=== PATIENT | female | born 1975 | race Caucasian/White ===

== ENCOUNTER 2019-11-08 01:27 | Day surgery (SDC) | payer BC, SELFPAY ==
[2019-11-02 14:42] VITALS: BMI 37.5
--- NOTE | 2019-11-08 08:24 | PM.HPGS ---
History of Present Illness History of Present Illness Consent: Risks, benefits, and alternatives have been discussed and questions answered. Patient agrees to proceed with procedure. Chief complaint: Epigastric Pain Narrative: Leidy Retana is a 44 year old female with frequent heartburn PMFSH Social History Social History Gender identity (if verbalized by the patient): Female Meds Home Medications and Allergies Home Medications Medication Instructions Recorded Confirmed Type No Home Medications 11/02/19 11/02/19 History Allergies Allergy/AdvReac Type Severity Reaction Status Date / Time HYDROMORPHONE HCL Allergy Severe RASH Uncoded 11/02/13 08:47 Exam Const: General: alert Orientation/consciousness: patient oriented x3 Resp: Auscultation: clear to auscultation bilaterally Cardio: Rhythm: regular rhythm GI: GI Palp: Yes Soft to palpation and No Tenderness to palpation present (GI) Neuro: General: patient oriented x3 Assessment and Plan Assessment and plan (1) GERD (gastroesophageal reflux disease): Code(s): K21.9 - Gastro-esophageal reflux disease without esophagitis Status: Acute Assessment and Plan: EGD with possible biopsy or dilatation or cautery.
[2019-11-08] MEDS: LACTATED RINGERS 1,000 ML 150 ML IV CONT (08:41)
[2019-11-08 08:43] VITALS: BMI 38.4
[2019-11-08 08:46] VITALS: BP 140/85; PULSE 88; RESP 16; TEMP 37.2; O2SAT 100
--- NOTE | 2019-11-08 08:52 | WPDANESEPPF ---
Anes - Initial Pre Proc Eval Procedure: Operation Date: 11/08/19 09:00 Proposed Procedures p Esophagogastroduodenoscopy - Teofilo Cervantes MD Date/Time: 11/08/19 08:52 Surgeon: Teofilo Cervantes MD Pre Op Diagnosis: Epigastric Pain Patient Data Age: 44 Gender: F Height: 5 ft 1 in Weight: 92.3 kg Last Vital Signs Temp 98.9 F 11/08/19 08:46 Pulse 88 11/08/19 08:46 Resp 16 11/08/19 08:46 BP 140/85 11/08/19 08:46 Pulse Ox 100 11/08/19 08:46 Allergies Allergy/AdvReac Type Severity Reaction Status Date / Time codeine Allergy Verified 11/08/19 08:28 HYDROMORPHONE HCL Allergy Severe RASH Uncoded 11/08/19 08:28 Home Medications Medication Instructions Recorded Confirmed Type naproxen sodium [Aleve] 220 mg PO BID PRN 11/08/19 11/08/19 History Patient hx anesthesia problems: none Family hx anesthesia problems: none [facility] Past Medical History Medical History (Updated 11/08/19 @ 08:53 by Terrance Brown MD) GERD (gastroesophageal reflux disease) Social History Social History Gender identity (if verbalized by the patient): Female Anes - Eval Final PreProcedure Day of Procedure 11/08/19 08:52 Patient weight: obese Heart: regular rate and rhythm Lungs: clear to auscultation Airway: Mallampati scale class II Neurological: alert and oriented Last oral intake: >/= 8 hours ASA classification: II Emergent: no Anesthetic plan: proceed Anesthesia type and monitoring: general GIVS and standard monitoring Informed Consent: The patient's anesthetic plan and its attendant risks and benefits were discussed with the patient/family/POA. Questions were solicited and answers provided to the satisfaction of the patient/family/POA.
[2019-11-08 09:25] VITALS: BP 126/80; PULSE 78; RESP 25; O2SAT 100
[2019-11-08 09:32] VITALS: BP 113/50; PULSE 83; RESP 18; O2SAT 99
[2019-11-08 09:42] VITALS: BP 126/80; PULSE 79; RESP 28; O2SAT 100
== END 2019-11-08 09:40 | disposition home or self-care (01) ==
PROVIDERS: PCP Internal Medicine; Visit Provider Internal Medicine Gastroenterology
PROC: 0DJ08ZZ Inspection of Upper Intestinal Tract, Via Natural or Artificial Opening Endoscopic (ICD-10-PCS; CPT 43235; principal; 2019-11-08 09:00)
DX: K21.9 Gastro-esophageal reflux disease without esophagitis (principal); E66.9 Obesity, unspecified; Z68.38 Body mass index [BMI] 38.0-38.9, adult
CPT/HCPCS: 43239; 87081; J2704; J7120

== ENCOUNTER → 2020-05-23 14:56 | Outpatient (CLI) | payer BC, SELFPAY ==
--- NOTE | ~2020-05-23 | MM_ITS ---
EXAMINATION: MM screening [facility] BI w [facility] HISTORY: Screening mammogram TECHNIQUE: Craniocaudal and mediolateral oblique 3-D tomosynthesis images were obtained and synthetic 2-D images were generated. CAD analysis was submitted and interpreted. COMPARISON: 01/25/2018, 01/10/2018, 06/21/2015 BREAST PARENCHYMAL COMPOSITION: There are scattered areas of fibroglandular density. FINDINGS: There is no evidence of suspicious mass, calcification, or architectural distortion to sugg est malignancy in either breast. There has been no suspicious interval change. IMPRESSION: 1. No mammographic evidence of malignancy. 2. Recommend routine screening mammography in one year. BI-RADS Category 1: Negative Reviewed, dictated and finalized at location A.
== END ==
PROVIDERS: PCP Internal Medicine; Visit Provider Obstetrics & Gynecology
DX: Z12.31 Encounter for screening mammogram for malignant neoplasm of breast (principal)
CPT/HCPCS: 77063; 77067

== ENCOUNTER 2023-01-29 01:31 | Day surgery (SDC) | payer BC, SELFPAY ==
[2023-01-22 10:13] VITALS: BMI 40.3
--- NOTE | 2023-01-28 15:42 | PM.HPGS ---
History of Present Illness History of Present Illness Consent: Risks, benefits, and alternatives have been discussed and questions answered. Patient agrees to proceed with procedure. Chief complaint: neoplasm screening Narrative: Leidy Retana is a 47 year old female Referred for colon cancer screening. She has 2 relatives who had colon cancer. Her last colonoscopy was 11 years ago. Review of Systems Review of Systems: All systems reviewed & are unremarkable except as noted in HPI and below PMFSH Past Medical History Medical History GERD (gastroesophageal reflux disease) Social History Social History Smoking status: Never smoker Substance use type: does not use Living arrangements: with family Gender identity (if verbalized by the patient): Female Spiritual care concerns: No Meds Home Medications and Allergies Home Medications Medication Instructions Recorded Confirmed Type atorvastatin 10 mg tablet 10 mg PO DAILY 11/11/22 01/22/23 History meloxicam 15 mg tablet 15 mg PO DAILY 11/11/22 01/22/23 History pantoprazole 40 mg tablet,delayed 40 mg PO QAM 3 months #90 tabs 11/11/22 01/22/23 Rx release collagen 1 dose PO DAILY 01/22/23 01/22/23 History Allergies Allergy/AdvReac Type Severity Reaction Status Date / Time hydrocodone Allergy Intermediate Agitated Verified 01/29/23 06:48 hydromorphone [From Dilaudid] Allergy Intermediate Itching Verified 01/29/23 06:48 codeine AdvReac Intermediate Nausea Verified 01/29/23 06:48 Exam Const: General: alert Orientation/consciousness: patient oriented x3 Resp: Auscultation: clear to auscultation bilaterally Cardio: Rhythm: regular rhythm GI: GI Palp: Yes Soft to palpation and No Tenderness to palpation present (GI) Neuro: General: patient oriented x3 Assessment and Plan Assessment and plan (1) Colon cancer screening: Code(s): Z12.11 - Encounter for screening for malignant neoplasm of colon Status: Acute Assessment and Plan: Colonoscopy with possible biopsy or polypectomy or cautery or injection of substances.
[2023-01-29 06:52] VITALS: BP 144/81; PULSE 105; RESP 20; TEMP 36.2; O2SAT 99
[2023-01-29] MEDS: LACTATED RINGERS 1,000 ML 150 ML IV CONT (07:08)
--- NOTE | 2023-01-29 07:38 | WPDANESEPPF ---
Anes - Initial Pre Proc Eval Procedure: Operation Date: 01/29/23 08:00 Proposed Procedures p Screening Colonoscopy - Teofilo Cervantes MD Date/Time: 01/29/23 07:38 Surgeon: Teofilo Cervantes MD Pre Op Diagnosis: neoplasm screening Patient Data Age: 47 Gender: F Height: 1.57 m Weight: 97.1 kg Last Vital Signs Temp 36.2 C L 01/29/23 06:52 Pulse 105 H 01/29/23 06:52 Resp 20 01/29/23 06:52 BP 144/81 H 01/29/23 06:52 Pulse Ox 99 01/29/23 06:52 O2 Del Method Room Air 01/29/23 06:52 Allergies Allergy/AdvReac Type Severity Reaction Status Date / Time hydrocodone Allergy Intermediate Agitated Verified 01/29/23 06:48 hydromorphone [From Dilaudid] Allergy Intermediate Itching Verified 01/29/23 06:48 codeine AdvReac Intermediate Nausea Verified 01/29/23 06:48 Home Medications Medication Instructions Recorded Confirmed Type atorvastatin 10 mg tablet 10 mg PO DAILY 11/11/22 01/22/23 History meloxicam 15 mg tablet 15 mg PO DAILY 11/11/22 01/22/23 History pantoprazole 40 mg tablet,delayed 40 mg PO QAM 3 months #90 tabs 11/11/22 01/22/23 Rx release collagen 1 dose PO DAILY 01/22/23 01/22/23 History Patient hx anesthesia problems: none Family hx anesthesia problems: none Results Review: All pre-operative results and documents have been reviewed as part of the pre-operative evaluation. [facility] Past Medical History Medical History (Updated 01/29/23 @ 07:40 by Andrea Liao MD) GERD (gastroesophageal reflux disease) Obesity Osteoarthritis PUD (peptic ulcer disease) Social History Social History Smoking status: Never smoker Substance use type: does not use Living arrangements: with family Gender identity (if verbalized by the patient): Female Spiritual care concerns: No Anes - Eval Final PreProcedure Day of Procedure 01/29/23 07:38 Patient weight: obese Heart: regular rate and rhythm Lungs: clear to auscultation Airway: Mallampati scale class II Neurological: alert and oriented Last oral intake: >/= 8 hours ASA classification: II Emergent: no Anesthetic plan: proceed Anesthesia type and monitoring: general GIVS and standard monitoring Results Review: All pre-operative results and documents have been reviewed as part of the pre-operative evaluation. Informed Consent: The patient's anesthetic plan and its attendant risks and benefits were discussed with the patient/family/POA. Questions were solicited and answers provided to the satisfaction of the patient/family/POA.
[2023-01-29] MEDS: SIMETHICONE ORAL SUSPENSION 20 MG/0.3 ML 30 ML BOTTLE 0.6 ML IRRIGATION (08:11)
[2023-01-29 08:21] VITALS: BP 106/60; PULSE 91; RESP 18; O2SAT 99
[2023-01-29 08:31] VITALS: BP 114/63; PULSE 84; RESP 14; O2SAT 99
[2023-01-29 08:41] VITALS: BP 111/76; PULSE 77; RESP 15; O2SAT 100
== END 2023-01-29 08:48 | disposition home or self-care (01) ==
PROVIDERS: PCP Internal Medicine; Visit Provider Internal Medicine Gastroenterology
PROC: 0DJD8ZZ Inspection of Lower Intestinal Tract, Via Natural or Artificial Opening Endoscopic (ICD-10-PCS; CPT 45378; principal; 2023-01-29 08:00)
DX: Z12.11 Encounter for screening for malignant neoplasm of colon (principal); K21.9 Gastro-esophageal reflux disease without esophagitis; E66.9 Obesity, unspecified; Z68.39 Body mass index [BMI] 39.0-39.9, adult
CPT/HCPCS: 45378; J2001; J2704; J7120

== ENCOUNTER 2023-07-08 06:39 | Outpatient (CLI) | payer BC, SELFPAY ==
--- NOTE | ~2023-07-08 | MR_ITS ---
MRI of the brain Clinical History: Headache Technique: Axial and sagittal T1-weighted images were acquired. These were followed by axial T2-weigh yahir, diffusion weighted, gradient, and FLAIR images. Findings: There is no acute infarct, internal hemorrhage, or mass lesion. There are minimal chronic w zenon matter changes in the periventricular white matter bilaterally. Ventricles and subarachnoid spaces are unremarkable. Orbits are unremarkable. Paranasal sinuses and m astoid air cells are clear. Major intracranial flow voids are intact. Sagittal midline structures are intact. IMPRESSION: Minimal chronic white matter changes, otherwise unremarkable exam. Reviewed, dictated and finalized at location M. [employer]
== END 2023-07-08 06:40 | disposition home or self-care (01) ==
PROVIDERS: PCP Internal Medicine; Visit Provider Internal Medicine
DX: R51.9 Headache, unspecified (principal); R90.82 White matter disease, unspecified
CPT/HCPCS: 70551

== ENCOUNTER 2024-03-08 08:06 | Outpatient (CLI) | payer BC, SELFPAY ==
--- NOTE | ~2024-03-08 | US_ITS ---
Limited Abdominal Sonogram: Real-time sonographic imaging of the right upper quadrant was performed. Clinical History: Abnormal liver enzymes Findings: The liver appears echogenic, with no evidence of mass lesion or bile duct dilatation. Main portal vein demonstrates normal direction of flow. The gallbladder is absent, compatible prior roxanna cystectomy. The common bile duct measures 5 mm. The visualized pancreas, aorta, and IVC are unremark able. Impression: Diffuse fatty infiltration of liver. Status post cholecystectomy. Reviewed, dictated and finalized at location . Impression: Diffuse fatty infiltration of liver. Status post cholecystectomy.
== END 2024-03-08 08:07 ==
LOC: MICIMG 08:07
PROVIDERS: PCP Internal Medicine; Visit Provider Internal Medicine
DX: K76.0 Fatty (change of) liver, not elsewhere classified (principal); Z90.49 Acquired absence of other specified parts of digestive tract
CPT/HCPCS: 76705